=== PATIENT | female | born 1985 | race Caucasian/White ===

== ENCOUNTER 2016-12-26 14:24 | Emergency (ER) | payer OTHER ==
[2016-12-26 15:52] LABS: BASO % 0.2 % (0.1-1.2); EOS # 0.1 10_X3_uL (0.0-0.4); EOS % 0.9 % (0.7-5.8); GRAN # 8.7 10_X3_uL (1.6-6.1); GRAN % 72.3 % (34.0-71.1); HEMATOCRIT 44.2 % (34-45); HEMOGLOBIN 15.5 g/dL (11.2-15.7); LYMPH # 2.1 10_X3_uL (1.2-3.7); LYMPH % 17.4 % (19.3-51.7); MEAN CORPUSCULAR HEMOGLOBIN 30.4 pg (27.0-33.0); MEAN CORPUSCULAR HGB CONC 35.1 g/dL (32.0-36.0); MEAN CORPUSCULAR VOLUME 86.7 fL (79-95); MONO # 1.1 10_X3_uL (0.2-0.9); MONO % 9.2 % (4.7-12.5); PLATELET COUNT 232 x10_3/uL (182-369); RED CELL DISTRIBUTION WIDTH 12.8 % (11.7-14.4)
[2016-12-26 16:04] LABS: ALBUMIN 4.5 gm/dL (3.4-5.0); ALKALINE PHOSPHATASE 79 U/L (50-136); ALT/SGPT 13 U/L (3.5-33.9); AMYLASE 44 U/L (15.62-74.58); AST/SGOT 15 U/L (7.04-26.96); BILIRUBIN,TOTAL 0.29 mg/dL (0.0-1.0); BLOOD UREA NITROGEN 14 mg/dL (7-18); CALCIUM 9.7 mg/dL (8.7-10.7); CARBON DIOXIDE 20 mmol/L (21-32); CREATININE 0.8 mg/dL (0.6-1.3); GLUCOSE,RANDOM 119 mg/dL (70-99); LIPASE 21 U/L (6.75-60.75); POTASSIUM 3.9 mmol/L (3.5-5.1); SODIUM 137 mmol/L (136-145)
[2016-12-26 16:09] LABS: URINE BILIRUBIN NEGATIVE (NEGATIVE); URINE BLOOD NEGATIVE (NEGATIVE); URINE GLUCOSE (UA) NORMAL (NORMAL); URINE KETONE NEGATIVE (NEGATIVE); URINE LEUKOCYTE ESTERASE TRACE (NEGATIVE); URINE NITRATE NEGATIVE (NEGATIVE); URINE PROTEIN NEGATIVE (NEGATIVE); UROBILINOGEN NORMAL mg/dL (<1.0)
[2016-12-26 16:29] LABS: URINE BACTERIA FEW (NONE SEEN); URINE RBC 0-5 /[HPF] (0-2); URINE SQUAMOUS EPITHELIAL CELL 15-20 /[HPF] (NONE SEEN); URINE WBC 0-5 /[HPF] (0-5); URINE YEAST FEW (NONE SEEN)
== END 2016-12-26 17:16 | disposition home or self-care (01) ==
LOC: ER 14:24
PROVIDERS: Emergency Medicine
DX: R19.7 Diarrhea, unspecified (principal); R11.0 Nausea; R53.1 Weakness; K21.9 Gastro-esophageal reflux disease without esophagitis; Z79.899 Other long term (current) drug therapy
CPT/HCPCS: 36415; 80053; 81001; 82150; 83690; 85025; 99070; 99283

== ENCOUNTER 2017-01-17 18:41 | Emergency (ER) | payer OTHER ==
[2017-01-17 19:27] LABS: BASO # 0.1 10_X3_uL (0.0-0.1); BASO % 0.7 % (0.1-1.2); EOS # 0.2 10_X3_uL (0.0-0.4); EOS % 3.6 % (0.7-5.8); GRAN # 3.9 10_X3_uL (1.6-6.1); GRAN % 57.9 % (34.0-71.1); HEMATOCRIT 37.8 % (34-45); LYMPH # 1.9 10_X3_uL (1.2-3.7); LYMPH % 27.5 % (19.3-51.7); MEAN CORPUSCULAR HEMOGLOBIN 30.4 pg (27.0-33.0); MEAN CORPUSCULAR HGB CONC 34.4 g/dL (32.0-36.0); MEAN CORPUSCULAR VOLUME 88.3 fL (79-95); MEAN PLATELET VOLUME 13.3 fl (7.5-11.5); MONO # 0.7 10_X3_uL (0.2-0.9); MONO % 10.3 % (4.7-12.5); PLATELET COUNT 179 x10_3/uL (182-369); RED BLOOD COUNT 4.28 x10_6/uL (3.9-5.2); WHITE BLOOD COUNT 6.7 x10_3/uL (4.0-10.0)
[2017-01-17 20:06] LABS: BLOOD UREA NITROGEN 11 mg/dL (7-18); CALCIUM 9.2 mg/dL (8.7-10.7); CARBON DIOXIDE 21 mmol/L (21-32); CREATININE 0.6 mg/dL (0.6-1.3); GLUCOSE,RANDOM 93 mg/dL (70-99); POTASSIUM 4.2 mmol/L (3.5-5.1); SODIUM 138 mmol/L (136-145)
== END 2017-01-17 20:28 | disposition home or self-care (01) ==
LOC: ER 18:41
PROVIDERS: General Practice
DX: R07.89 Other chest pain (principal); F41.9 Anxiety disorder, unspecified; R51 Headache; K04.7 Periapical abscess without sinus; F17.210 Nicotine dependence, cigarettes, uncomplicated; Z88.0 Allergy status to penicillin; Z79.899 Other long term (current) drug therapy
CPT/HCPCS: 36415; 71010; 80048; 85025; 85379; 93005; 99285-25